=== PATIENT | female | born 1970 | race Caucasian/White ===

== ENCOUNTER 2019-04-17 14:33 | Emergency (ER) | payer BC ==
[2019-04-17 14:43] VITALS: BP 143/85; PULSE 102
[2019-04-17] MEDS ORDERED: Sodium Chloride 0.9% 10 ML Syringe FLUSH PRN (15:32)
[2019-04-17] MEDS ORDERED: Iopamidol 612 MG/ML 100 ML Bottle IVPUSH ONE (15:41)
[2019-04-17] MEDS: Sodium Chloride 0.9% 10 ML Syringe FLUSH PRN ×2 (15:44→15:55)
--- NOTE | 2019-04-17 16:23 | EDM.PDOC ---
ED HPI GENERAL MEDICAL PROBLEM - General Chief Complaint: ENT Problem Stated Complaint: LT SIDE OF NECK SWOLLEN Time Seen by Provider: 04/17/19 15:20 Source of Information: Reports: Patient History Limitations: Reports: No Limitations - History of Present Illness INITIAL COMMENTS - FREE TEXT/NARRATIVE: 48 year old female presents for evaluation and treatment of left sided neck pain. Reports symptoms started Friday. Was seen in the walk-in clinic on . Started on Augmentin. Feels her symptoms are worsening which prompted her to come to the ER today. Reports left sided neck pain and stiffness. Has also appreciated dysphagia and odynophagia. Denies any shortness of breath, fevers, chills, nausea or vomiting. no recent dental infections or bad taste in her mouth. No history of this. Last seen a dentist about a year ago. Left Neck Pain Score (Numeric/FACES): 9 - Related Data Allergies Allergy/AdvReac Type Severity Reaction Status Date / Time cephalexin Allergy Rash Verified 04/17/19 14:43 ciprofloxacin Allergy Rash Verified 04/17/19 14:43 naproxen Allergy Hives Verified 04/17/19 14:43 codeine AdvReac Nausea and Verified 04/17/19 14:43 Vomiting meperidine HCl [From Demerol] AdvReac Nausea and Verified 04/17/19 14:43 Vomiting Home Meds: Home Meds Enalapril Maleate 5 mg PO DAILY 12/02/14 [History] Esomeprazole Magnesium [Nexium] 40 mg PO BID 12/02/14 [History] Multivitamin [Multi-Vitamin Daily] 1 tab PO DAILY 12/02/14 [History] buPROPion [Wellbutrin] 300 mg PO DAILY 12/02/14 [History] Ondansetron [Zofran ODT] 4 mg PO Q6H PRN #30 tab.dis 12/05/14 [Rx] Amoxicillin/Potassium Clav [Augmentin 875-125 Tablet] 1 each PO BID 04/17/19 [ History] Celecoxib [CeleBREX] 100 mg PO BID 04/17/19 [History] Clobetasol [Clobetasol Propionate 0.05% Cream] 15 gm TOP BID 04/17/19 [History] DULoxetine [Cymbalta] 90 mg PO DAILY 04/17/19 [History] Diclofenac Sodium 100 gm TP QID 04/17/19 [History] Magnesium Oxide [Magnesium] 400 mg PO DAILY 04/17/19 [History] Omeprazole 40 mg PO DAILY 04/17/19 [History] tiZANidine [Zanaflex] 4 mg PO DAILY 04/17/19 [History] Past Medical History HEENT History: Reports: Impaired Vision Cardiovascular History: Reports: None Other Respiratory History: snoring with daytime somnolence, educated and encouraged participation in scheduled sleep study Gastrointestinal History: Reports: GERD Other Gastrointestinal History: Celiac UROLOGIST PHYSICIAN History: Reports: Endometriosis Other Musculoskeletal History: bursitis in left hip. Neurological History: Reports: None Psychiatric History: Reports: Depression Endocrine/Metabolic History: Reports: Obesity/BMI 30+ Hematologic History: Reports: Iron Deficiency Immunologic History: Reports: None Oncologic (Cancer) History: Reports: None Dermatologic History: Reports: None - Infectious Disease History Infectious Disease History: Reports: None - Past Surgical History Head Surgeries/Procedures: Reports: None GI Surgical History: Reports: Cholecystectomy Female Surgical History: Reports: Hysterectomy Other Musculoskeletal Surgeries/Procedures:: bone spur on the foot surgery Social & Family History - Tobacco Use Smoking Status *Q: Former Smoker Used Tobacco, but Quit: Yes Month/Year Tobacco Last Used: 2013 - Caffeine Use Caffeine Use: Reports: Soda - Recreational Drug Use Recreational Drug Use: No ED ROS ENT - Review of Systems Review Of Systems: See Below Constitutional: Denies: Fever, Chills HEENT: Reports: Other (no recent dental abscess or bad taste in her mouth.). Denies: Dental Pain GI/Abdominal: Denies: Nausea, Vomiting ED EXAM, ENT - Physical Exam Exam: See Below Exam Limited By: No Limitations General Appearance: Alert, WD/WN, No Apparent Distress, Obese, Other (no drooling or tripoding) Eye Exam: Bilateral Eye: Normal Inspection Ears: Normal External Exam Nose: Normal Inspection Mouth/Throat: Normal Inspection, Normal Lips, Normal Oropharynx, Other (+ trismus) Neck: Normal Inspection, Limited Range of Motion (stiffness with ROm), Other ( indurated mass to the left submandibular and anterior to the left SCM) Respiratory/Chest: No Respiratory Distress, Lungs Clear, Normal Breath Sounds Cardiovascular: Normal Peripheral Pulses, Regular Rate, Rhythm, No Murmur Neurological: Alert, Oriented, Normal Cognition Psychiatric: Normal Affect, Normal Mood Skin: Warm, Dry, Normal Color Course - Vital Signs Last Recorded V/S: Last Vital Signs Temp 96.9 F 04/17/19 14:41 Pulse 102 H 04/17/19 14:41 Resp 16 04/17/19 14:41 BP 143/85 H 04/17/19 14:41 Pulse Ox 99 04/17/19 14:41 - Orders/Labs/Meds Orders: Active Orders 24 hr Category Date Time Status Peripheral IV Care [RC] . DIRECTED Care 04/17/19 15:33 Active CULTURE BLOOD [] Stat Lab 04/17/19 17:00 Received CULTURE BLOOD [] Stat Lab 04/17/19 17:07 Received CULTURE STREP A CONFIRMATION [] Stat Lab 04/17/19 16:02 Results STREP SCRN A RAPID W CULT CONF [] Stat Lab 04/17/19 16:02 Results Sodium Chloride 0.9% [Normal Saline] 1,000 ml Med 04/17/19 18:00 Active IV ASDIRECTED Sodium Chloride 0.9% [Saline Flush] Med 04/17/19 15:32 Active 10 ml FLUSH ASDIRECTED PRN Sodium Chloride 0.9% [Saline Flush] Med 04/17/19 15:41 Active 10 ml FLUSH ONETIME PRN Blood Culture x2 Reflex Set [OM.PC] Stat Oth 04/17/19 16:45 Ordered Peripheral IV Insertion Adult [OM.PC] Routine Oth 04/17/19 15:32 Ordered Medication Orders Sodium Chloride (Normal Saline) 1,000 mls @ 100 mls/hr IV ASDIRECTED TC Sodium Chloride (Saline Flush) 10 ml FLUSH ASDIRECTED PRN PRN Reason: Keep Vein Open Last Admin: 04/17/19 16:22 Dose: 10 ml Sodium Chloride (Saline Flush) 10 ml FLUSH ONETIME PRN PRN Reason: IV FLUSH Last Admin: 04/17/19 15:55 Dose: 10 ml Admin: 04/17/19 15:44 Dose: 10 ml Labs: Laboratory Tests 04/17/19 04/17/19 04/17/19 Range/Units 15:45 15:45 17:00 WBC 16.19 H (3.98-10.04) K/mm3 RBC 4.26 (3.98-5.22) M/mm3 Hgb 11.1 L (11.2-15.7) gm/dl Hct 36.0 (34.1-44.9) % MCV 84.5 (79.4-94.8) fl MCH 26.1 (25.6-32.2) pg MCHC 30.8 L (32.2-35.5) g/dl RDW Std Deviation 47.2 H (36.4-46.3) fL Plt Count 388 H (182-369) K/mm3 MPV 8.8 L (9.4-12.3) fl Neutrophils % (Manual) 82 H (40-60) % Band Neutrophils % 1 (0-10) % Lymphocytes % (Manual) 11 L (20-40) % Atypical Lymphs % 0 % Monocytes % (Manual) 4 (2-10) % Eosinophils % (Manual) 2 (0.7-5.8) % Basophils % (Manual) 0 L (0.1-1.2) Platelet Estimate Adequate RBC Morph Comment Normal Sodium 137 (136-145) mEq/L Potassium 3.8 (3.5-5.1) mEq/L Chloride 101 (98-107) mEq/L Carbon Dioxide 29 (21-32) mEq/L Anion Gap 10.8 (5-15) BUN 8 (7-18) mg/dL Creatinine 0.5 L (0.55-1.02) mg/dL Est Cr Clr Drug Dosing 116.30 mL/min Estimated GFR (MDRD) > 60 (>60) mL/min BUN/Creatinine Ratio 16.0 (14-18) Glucose 105 (74-106) mg/dL Lactic Acid 1.0 (0.4-2.0) mmol/L Calcium 9.1 (8.5-10.1) mg/dL Total Bilirubin 0.4 (0.2-1.0) mg/dL AST 9 L (15-37) U/L ALT 20 (14-59) U/L Alkaline Phosphatase 96 (46-116) U/L C-Reactive Protein 26.1 H* (<1.0) mg/dL Total Protein 7.7 (6.4-8.2) g/dl Albumin 2.8 L (3.4-5.0) g/dl Globulin 4.9 gm/dL Albumin/Globulin Ratio 0.6 L (1-2) Meds: Medications Generic Name Dose Route Start Last Admin Trade Name Freq PRN Reason Stop Dose Admin Sodium Chloride 1,000 mls @ 100 mls/hr 04/17/19 18:00 Normal Saline IV ASDIRECTED TC Sodium Chloride 10 ml 04/17/19 15:32 04/17/19 16:22 Saline Flush FLUSH 10 ml ASDIRECTED PRN Administration Keep Vein Open Sodium Chloride 10 ml 04/17/19 15:41 04/17/19 15:55 Saline Flush FLUSH 10 ml ONETIME PRN Administration IV FLUSH Discontinued Medications Generic Name Dose Route Start Last Admin Trade Name Freq PRN Reason Stop Dose Admin Dexamethasone 10 mg 04/17/19 17:37 04/17/19 17:47 Dexamethasone IVPUSH 04/17/19 17:38 10 mg ONETIME ONE Administration Hydromorphone HCl 0.5 mg 04/17/19 17:46 Dilaudid IVPUSH 04/17/19 17:47 ONETIME ONE Ampicillin Sodium/Sulbactam 100 mls @ 200 mls/hr 04/17/19 16:44 04/17/19 16: 57 Sodium 3 gm/ Sodium Chloride IV 04/17/19 17:13 200 mls/hr ONETIME ONE Administration Iopamidol 100 ml 04/17/19 15:41 04/17/19 15:55 Isovue-300 (61%) IVPUSH 04/17/19 15:42 100 ml ONETIME ONE Administration Ondansetron HCl 4 mg 04/17/19 17:46 Zofran IVPUSH 04/17/19 17:47 ONETIME ONE - Radiology Interpretation Free Text/Narrative:: CT neck Technique: Multiple axial sections of the neck were obtained from above the external auditory canals inferiorly to the lung apices. Intravenous contrast was utilized. Reconstructed coronal and sagittal images were obtained. Findings: Prominent inflammatory change is seen within the left neck anterior and medial to the sternocleidomastoid muscle. This is close to the submandibular salivary gland but does not involve the salivary gland. There is a low-density finding being seen which is inseparable from the anterior sternocleidomastoid mastoid muscle measuring about 2.0 cm which is suspicious for developing abscess. This causes mass effect upon the adjacent jugular vein. Proximal jugular vein is not seen and may be occluded. Parapharyngeal soft tissues are normal. Minimal adenopathy seen within the left neck which is most likely reactive from the inflammatory change. Parotid salivary glands appear within normal limits. Impression: 1. Diffuse left-sided inflammatory change with developing abscess which is located along the anterior and medial sternocleidomastoid mastoid muscle and causes compression of the jugular vein. Size of this developing abscess as noted above. 2. Unopacified proximal jugular vein is seen and difficult to exclude jugular vein occlusion. 3. Mild adenopathy with the left neck most likely reactive from the inflammatory process within the left neck. Etiology of this inflammatory process within the left neck is not seen on this study. - Re-Assessments/Exams Free Text/Narrative Re-Assessment/Exam: 04/17/19 17:[address] Ramirez, ENT in [place]. Dis not feel that she needed emergent ENT management felt she could be managed with IV antibiotics at this juncture. discussed with our hospitalist Dr. Dickson. She has come to the ER and evaluated the patient's images. She does feel that this patient should be at a higher level of care. Recommended giving IV dexamethasone 10 mg in addition to the Unasyn she has received already. Discussed case with Dr. Clark, hospitalist on-call at [facility] in [place]. Agrees to accept the patient. She will go by ambulance. She has received Unasyn, 10 mg IV dexamethasone and is receiving fluids. She has declined pain medication thus far but I will give her some prior to transfer as well as some IV Zofran. Departure - Departure Time of Disposition: 17:57 Disposition: DC/Tfer to Acute Hospital 02 Condition: Serious Clinical Impression: Neck abscess, Jugular vein occlusion, left - Discharge Information *PRESCRIPTION DRUG MONITORING PROGRAM REVIEWED*: No *COPY OF PRESCRIPTION DRUG MONITORING REPORT IN PATIENT [place]: No Referrals: Manuelito Valdez Jr, MD [Primary Care Provider] - Forms: ED Department Discharge Additional Instructions: Patient to go by ground ambulance to [facility] in [place], Dr. Clark accepting. - My Orders Last 24 Hours: My Active Orders 04/17/19 15:32 Sodium Chloride 0.9% [Saline Flush] 10 ml FLUSH ASDIRECTED PRN Peripheral IV Insertion Adult [OM.PC] Routine 04/17/19 15:33 Peripheral IV Care [RC] . DIRECTED 04/17/19 15:41 Sodium Chloride 0.9% [Saline Flush] 10 ml FLUSH ONETIME PRN 04/17/19 16:02 CULTURE STREP A CONFIRMATION [RM] Stat STREP SCRN A RAPID W CULT CONF [RM] Stat 04/17/19 16:45 Blood Culture x2 Reflex Set [OM.PC] Stat 04/17/19 17:00 CULTURE BLOOD [BC] Stat 04/17/19 17:07 CULTURE BLOOD [BC] Stat 04/17/19 18:00 Sodium Chloride 0.9% [Normal Saline] 1,000 ml IV ASDIRECTED - Assessment/Plan Last 24 Hours: My Active Orders 04/17/19 15:32 Sodium Chloride 0.9% [Saline Flush] 10 ml FLUSH ASDIRECTED PRN Peripheral IV Insertion Adult [OM.PC] Routine 04/17/19 15:33 Peripheral IV Care [RC] . DIRECTED 04/17/19 15:41 Sodium Chloride 0.9% [Saline Flush] 10 ml FLUSH ONETIME PRN 04/17/19 16:02 CULTURE STREP A CONFIRMATION [RM] Stat STREP SCRN A RAPID W CULT CONF [RM] Stat 04/17/19 16:45 Blood Culture x2 Reflex Set [OM.PC] Stat 04/17/19 17:00 CULTURE BLOOD [BC] Stat 04/17/19 17:07 CULTURE BLOOD [BC] Stat 04/17/19 18:00 Sodium Chloride 0.9% [Normal Saline] 1,000 ml IV ASDIRECTED
--- NOTE | 2019-04-17 16:26 | CT ---
CT neck Technique: Multiple axial sections of the neck were obtained from above the external auditory canals inferiorly to the lung apices. Intravenous contrast was utilized. Reconstructed coronal and sagittal images were obtained. Findings: Prominent inflammatory change is seen within the left neck anterior and medial to the sternocleidomastoid muscle. This is close to the submandibular salivary gland but does not involve the salivary gland. There is a low-density finding being seen which is inseparable from the anterior sternocleidomastoid mastoid muscle measuring about 2.0 cm which is suspicious for developing abscess. This causes mass effect upon the adjacent jugular vein. Proximal jugular vein is not seen and may be occluded. Parapharyngeal soft tissues are normal. Minimal adenopathy seen within the left neck which is most likely reactive from the inflammatory change. Parotid salivary glands appear within normal limits. Impression: 1. Diffuse left-sided inflammatory change with developing abscess which is located along the anterior and medial sternocleidomastoid mastoid muscle and causes compression of the jugular vein. Size of this developing abscess as noted above. 2. Unopacified proximal jugular vein is seen and difficult to exclude jugular vein occlusion. 3. Mild adenopathy with the left neck most likely reactive from the inflammatory process within the left neck. Etiology of this inflammatory process within the left neck is not seen on this study. Diagnostic code #3
[2019-04-17] MEDS ORDERED: Ampicillin/Sulbactam Na 3 GM in Sodium Chloride 0.9% 100 ML IV ONE (16:44)
[2019-04-17] MEDS ORDERED: Dexamethasone 10 MG/ML SDV IVPUSH ONE (17:37)
[2019-04-17] MEDS ORDERED: HYDROmorphone 0.5 MG/0.5 ML Syringe IVPUSH ONE (17:46)
[2019-04-17] MEDS ORDERED: Ondansetron 4 MG/2 ML SDV IVPUSH ONE (17:46)
[2019-04-17] MEDS ORDERED: Sodium Chloride 0.9% 1,000 ML IV SCH (18:00)
== END 2019-04-17 18:20 ==
LOC: JD.ED 14:33
DX: L02.11 Cutaneous abscess of neck (principal); I82.C12 Acute embolism and thrombosis of left internal jugular vein; K21.9 Gastro-esophageal reflux disease without esophagitis; F32.9 Major depressive disorder, single episode, unspecified; E66.9 Obesity, unspecified; Z68.42 Body mass index [BMI] 45.0-49.9, adult; Z88.1 Allergy status to other antibiotic agents; Z88.6 Allergy status to analgesic agent; Z88.5 Allergy status to narcotic agent; Z79.899 Other long term (current) drug therapy; Z87.891 Personal history of nicotine dependence
CPT/HCPCS: 36415; 70491; 80053; 83605; 85007; 85027; 86140; 87040; 87081; 87430; 96361; 96374; 96375; 99284; J0295; J1100; J1170; J2405; J7030; J7040; Q9967

== ENCOUNTER → 2023-04-09 | Day surgery (SDC) | payer BC ==
[~2023-04-09] MED LIST: Lactated Ringers 1,000 ML IV SCH; Midazolam 1 MG/ML 2 ML SDV ONE; Propofol 200 MG/20 ML SDV ONE; Sodium Chloride 0.9% 10 ML Syringe FLUSH PRN; Sodium Chloride 0.9% 10 ML Syringe FLUSH SCH; fentaNYL 100 MCG/2 ML SDV ONE
[2023-04-09 12:42] VITALS: BP 118/90; PULSE 80
== END | disposition home or self-care (01) ==
LOC: JD.SDS 09:00
PROVIDERS: ATTEND Surgery
DX: K52.9 Noninfective gastroenteritis and colitis, unspecified (principal); K29.70 Gastritis, unspecified, without bleeding; K62.89 Other specified diseases of anus and rectum; K90.0 Celiac disease; Q43.8 Other specified congenital malformations of intestine; K21.9 Gastro-esophageal reflux disease without esophagitis; I10 Essential (primary) hypertension; E66.9 Obesity, unspecified; I25.10 Atherosclerotic heart disease of native coronary artery without angina pectoris; F32.A Depression, unspecified; Z87.891 Personal history of nicotine dependence; Z90.49 Acquired absence of other specified parts of digestive tract; Z90.710 Acquired absence of both cervix and uterus; Z79.82 Long term (current) use of aspirin; Z79.899 Other long term (current) drug therapy; Z88.5 Allergy status to narcotic agent; Z88.8 Allergy status to other drugs, medicaments and biological substances
CPT/HCPCS: 43239; 45380; J2250; J2704; J3010; J7120

== ENCOUNTER 2025-03-14 06:45 | Day surgery (SDC) | payer BC ==
[~2025-03-14 06:45] MED LIST changes: -Lactated Ringers 1,000 ML IV SCH; -Midazolam 1 MG/ML 2 ML SDV ONE; -Propofol 200 MG/20 ML SDV ONE; -fentaNYL 100 MCG/2 ML SDV ONE
[2025-03-14] MEDS: Lactated Ringers 1,000 ML IV SCH (07:00)
[2025-03-14] MEDS ORDERED: propofoL 500 MG/50 ML 50 ML ONE ×2 (07:02→10:01)
[2025-03-14] MEDS ORDERED: Midazolam 1 MG/ML 2 ML SDV ONE (07:04)
[2025-03-14] MEDS: Clindamycin Phosphate in D5W 900 MG in Premix Bag 1 BAG IV ONE (07:20)
[2025-03-14] MEDS: oxyCODONE ER 10 MG TAB.ER PO ONE (07:20)
[2025-03-14] MEDS ORDERED: Triamcinolone Acetonide 40 MG/ML 1 ML SDV ONE (07:21)
[2025-03-14] MEDS ORDERED: Phenylephrine 1% 10 MG/ML SDV ONE (08:27)
[2025-03-14] MEDS ORDERED: Dexamethasone 4 MG/ML 5 ML MDV ONE (08:30)
[2025-03-14] MEDS ORDERED: Ondansetron 4 MG/2 ML SDV ONE (08:30)
[2025-03-14] MEDS ORDERED: Lactated Ringers 1,000 ML IV ONE ×2 (08:45→10:00)
[2025-03-14] MEDS ORDERED: Ondansetron 4 MG/2 ML SDV IVPUSH PRN (08:56)
[2025-03-14] MEDS ORDERED: fentaNYL 100 MCG/2 ML SDV IVPUSH PRN (08:56)
[2025-03-14] MEDS: Morphine 8 MG, EPINEPHrine 0.3 MG, Ketorolac 30 MG, Sodium Chloride 0.9% 7.9 ML PRN (09:42)
[2025-03-14] MEDS ORDERED: Ropivacaine 0.5% 5 MG/ML 30 ML SDV ONE (10:28)
[2025-03-14 14:08] VITALS: BP 149/77; PULSE 79
== END 2025-03-14 13:50 | disposition home or self-care (01) ==
LOC: JD.SDS 06:45
PROVIDERS: ATTEND Orthopaedic Surgery
DX: M17.0 Bilateral primary osteoarthritis of knee (principal); K21.9 Gastro-esophageal reflux disease without esophagitis; E66.9 Obesity, unspecified; Z88.8 Allergy status to other drugs, medicaments and biological substances; Z88.5 Allergy status to narcotic agent; Z68.42 Body mass index [BMI] 45.0-49.9, adult; Z87.891 Personal history of nicotine dependence; Z79.899 Other long term (current) drug therapy
CPT/HCPCS: 0055T; 20610; 27447; 64447; 73560; 97110; 97116; 97161; A9270; C1713; C1776; J0169; J0665; J0736; J1100; J1885; J2250; J2272; J2371; J2405; J2704; J2795; J3301; J3373; J7120; 01402